=== PATIENT | male | born 1965 | race Caucasian/White ===

== ENCOUNTER 2019-03-19 18:34 | Emergency (ER) | payer BC, OTHER ==
[~2019-03-19] VITALS: Ht 175.3 cm; Wt 94.3 kg
[2019-03-19 18:37] VITALS: BP 142/77
[2019-03-19] MEDS ORDERED: LIDOCAINE 2% JEL 5 ML TUBE MC ONE (19:00)
== END 2019-03-19 19:27 | disposition home or self-care (01) ==
LOC: ER 18:37
DX: S01.111A Laceration without foreign body of right eyelid and periocular area, initial encounter (principal); J45.909 Unspecified asthma, uncomplicated; Z60.2 Problems related to living alone; W01.0XXA Fall on same level from slipping, tripping and stumbling without subsequent striking against object, initial encounter; Y93.01 Activity, walking, marching and hiking; Y92.098 Other place in other non-institutional residence as the place of occurrence of the external cause; Y99.8 Other external cause status
CPT/HCPCS: 12011; 99283; A6402; A6403